=== PATIENT | male | born 1975 | race Caucasian/White ===

== ENCOUNTER 2019-07-31 07:04 | Day surgery (SDC) | payer OTHER ==
[2019-07-28 15:30] VITALS: BMI 31.6
[2019-07-31] MEDS ORDERED: LIDOCAINE HCL 1%, 10 MG/ML (20ML VIAL) ONE (09:45)
--- NOTE | 2019-07-31 09:47 | HP ---
Admitting History and Physical - Admission Chief Complaint: Right inguinal hernia History of Present Illness: Patient presents for right inguinal hernia repair. Patient states he noticed the hernia about 1 year ago and it has been getting progressively larger over time. He has been following with Dr Jaffe for this problem. History Source: Patient Limitations to Obtaining History: No Limitations - Past Medical History [employer] OVEN TENDER: No: Alzheimer's, CVA, Dementia, Migraine, Multiple Sclerosis, Peripheral Neuropathy, Parkinson's, Seizure, Syncope, TIA, Vertigo, Other Cardiovascular: No: AFIB, Aneurysm, Aortic Insufficiency, Aortic Stenosis, CAD, CHF, Deep Vein Thrombosis, HTN, Hyperlipdemia, VT, Mitral Insufficiency, Mitral Stenosis, Murmur, Pulmonary Hypertension, Other Pulmonary: No: Asthma, Bronchitis, Cancer, COPD, O2 Dependent, Pneumonia, Previously Intubated, Pulmonary Embolus, Pulmonary Fibrosis, Sleep Apnea, Other Gastrointestinal: No: Ascites, Cancer, Constipation, Crohn's Disease, Diverticulitis, Diverticulosis, Esophageal Varices, Gastritis, GERD, GI Bleed, Hemorrhoids, Hiatal Hernia, Inflamatory Bowel Disease, Irritable Bowel Disease, Pancreatitis, Peptic Ulcer Disease, Ulcerative Colitis, Other Hepatobiliary: No: Cirrhosis, Cholelithiasis, Cholecystitis, Choledocholithiasis , Hepatitis A, Hepatitis B, Hepatitis C, Other Renal/: No: Renal Failure, Renal Inusuff, BPH, Cancer, Hematuria, Hemodialysis , Neurogenic Bladder, Renal Calculi, UTI, Other Heme/Onc: No: Anemia, B12 Deficiency, Bleeding Disorder, Cancer, Current Chemotherapy, Current Radiation Therapy, Hemochromatosis, Hypercoaguable State, Myeloproliferative Synd, Sickle Cell Disease, Sickle Cell Trait, Thrombocytopenia, Other Infectious Disease: No: AIDS, C-Diff, Herpes Zoster, HIV, MRSA, STD's, Tuberculosis, VREF, Other Psych: No: Addictions, Anxiety, Bipolar, Depression, Panic, Psychosis, Schizophrenia, Other Musculoskeletal: No: Bursitis, Chronic low back pain, Hemiparesis, Hemiplegia, Osteoarthritis, Paraplegia, Other ENT: No: Allergic Rhinitis, Sinusitis, Other Endocrine: No: Crenshaw's Disease, [place]'s Disease, Diabetes Insipidus, Diabetes Mellitus, Hyperparathyroidism, Hyperthyroidism, Hypothyroidism, Osteopenia, SIADH, Other Dermatology: No: Basal Cell, Cellulitis, Eczema, Melanoma, Psoriasis, Squamous Cell, Other Additional Past Medical History: Right inguinal hernia as stated in HPI - Past Surgical History Past Surgical History: Yes: None - Smoking History Smoking history: Never smoked Have you smoked in the past 12 months: No - Alcohol/Substance Use Hx Alcohol Use: Yes (weekends,socially) - Social History ADL: Independent Home Medications - Allergies Allergies/Adverse Reactions: Allergies Allergy/AdvReac Type Severity Reaction Status Date / Time No Known Allergies Allergy Verified 07/28/19 15:26 - Home Medications Home Medications: Ambulatory Orders NK [No Known Home Medication] 07/28/19 Review of Systems - Review of Systems Constitutional: reports: No Symptoms Eyes: reports: No Symptoms HENT: reports: No Symptoms Neck: reports: No Symptoms Cardiovascular: reports: No Symptoms Respiratory: reports: No Symptoms Gastrointestinal: denies: No Symptoms, Abdominal Pain, Bloating, Constipation, Diarrhea, Dysphagia, Indigestion, Melena, Nausea, Rectal Bleeding, Vomiting, Vomiting Blood, Other Genitourinary: reports: Pain, Testicular Mass (hernia) Breasts: reports: No Symptoms Reported Musculoskeletal: reports: No Symptoms Integumentary: reports: No Symptoms Neurological: reports: No Symptoms Endocrine: reports: No Symptoms Hematology/Lymphatic: reports: No Symptoms Psychiatric: reports: No Symptoms Physical Examination Vital Signs: Vital Signs Temperature 97.8 F 07/31/19 07:24 Pulse Rate 80 07/31/19 07:24 Respiratory Rate 20 07/31/19 07:24 Blood Pressure 125/88 07/31/19 07:24 O2 Sat by Pulse Oximetry (%) 97 07/31/19 07:24 Constitutional: Yes: Well Nourished Eyes: Yes: Conjunctiva Clear, EOM Intact HENT: Yes: WNL, Atraumatic, Normocephalic Neck: Yes: Supple, Trachea Midline Cardiovascular: Yes: Regular Rate and Rhythm, S1, S2 Respiratory: Yes: Regular, CTA Bilaterally Gastrointestinal: Yes: Normal Bowel Sounds, Soft ...Rectal Exam: Yes: Deferred Breast(s): No: WNL, Left, Right, Breast Implants, Dimpling, Discharge from Nipple, Gynecomastia, Mass, Nipple Inversion, Skin Changes, Other Musculoskeletal: Yes: WNL Extremities: Yes: WNL Edema: No Peripheral Pulses WNL: Yes Peripheral Pulses: Left Radial: 2+, Right Radial: 2+, Left Doralis Pedis: 2+, Right Dorsalis Pedis: 2+ Integumentary: Yes: WNL Neurological: Yes: Alert Psychiatric: Yes: Alert, Oriented Labs: reviewed Problem List - Problems (1) Right inguinal hernia Assessment/Plan: Patient presents for elective repair of right inguinal hernia. Denies any new symptoms since last visit with Dr Jaffe -[facility] for surgery -Consent to be obtained by Dr Ld dupree to d/c home after surgery Code(s): K40.90 - UNIL INGUINAL HERNIA, W/O OBST OR GANGR, NOT SPCF RECUR Visit type - Emergency Visit Emergency Visit: No - New Patient This patient is new to me today: Yes Date on this admission: 07/31/19 - Critical Care Critical Care patient: No
[2019-07-31] MEDS ORDERED: MIDAZOLAM HCL 2 MG/2 ML SINGLE DOSE VIAL ONE (09:55)
[2019-07-31] MEDS ORDERED: PROPOFOL 20 ML ONE ×2 (09:55)
[2019-07-31] MEDS ORDERED: fentaNYL CITRATE 250 MCG/5 ML VIAL ONE (09:55)
[2019-07-31] MEDS ORDERED: ROCURONIUM BROMIDE 50 MG/5 ML SYRINGE ONE (09:55)
[2019-07-31] MEDS ORDERED: ceFAZolin SODIUM 1 GM VIAL IVPB ONE (10:33)
[2019-07-31] MEDS ORDERED: BUPIVACAINE HCL/PF 0.5% (5MG/ML) 10 ML VIAL NR ONE ×2 (10:48)
[2019-07-31] MEDS ORDERED: LIDOCAINE HCL 1%, 10 MG/ML (20ML VIAL) NR ONE ×2 (10:48)
--- NOTE | 2019-07-31 12:16 | OP ---
Operative Note - Note: Operative Date: 07/31/19 Pre-Operative Diagnosis: Right Inguinal hernia Operation: Right inguinal hernia repair with mesh Post-Operative Diagnosis: Same as Pre-op Surgeon: Jacky Jaffe Blending Kettle Tender: Sandee Damon Anesthesiologist/POWERHOUSE MECHANIC: Denys Reardon Anesthesia: General, Local Estimated Blood Loss (mls): 10 Fluid Volume Replaced (mls): 1,000 Operative Report Dictated: Yes
--- NOTE | 2019-07-31 12:17 | SURG ---
Surgery Roofing Layer Note Roofing Layer: Sandee Damon PA-C Date of Service: 07/31/19 Diagnosis: Right Inguinal hernia Procedure: Right inguinal hernia repair with mesh I was present for the entirety of the operative procedure. For further detail, please refer to operative report. Visit type - Case Type Case Type: Scheduled - Emergency Emergency Visit: No - New patient This patient is new to me today: Yes Date on this admission: 07/31/19
[2019-07-31] MEDS ORDERED: oxyCODONE HCL 5 MG TABLET PO PRN ×2 (12:52)
[2019-07-31] MEDS ORDERED: ONDANSETRON 4 MG/2 ML VIAL IVPUSH PRN (12:52)
[2019-07-31] MEDS ORDERED: LACTATED RINGERS SOLUTION 1,000 ML IV SCH (13:00)
[2019-07-31 14:16] VITALS: TEMP 98.3
[2019-07-31] MEDS ORDERED: oxyCODONE HCL 5 MG TABLET ONE (16:59)
[2019-07-31] MEDS ORDERED: oxyCODONE HCL 5 MG TABLET PO ONE (17:00)
[2019-07-31 17:54] VITALS: BP 117/71; PULSE 70
--- NOTE | 2019-08-03 10:11 | OP ---
DATE OF OPERATION: 07/31/2019 PREOPERATIVE DIAGNOSIS: Right inguinal hernia. POSTOPERATIVE DIAGNOSIS: Right inguinal hernia. PROCEDURE PERFORMED: Repair of right inguinal hernia with ProGrip mesh. SURGEON: Jacky Jaffe MD TRIAGE TECHNICIAN: Sandee Damon PA-C ANESTHESIA: General. OPERATIVE FINDINGS: There was a direct inguinal hernia. The rest of the findings were unremarkable. DESCRIPTION OF PROCEDURE: The patient was placed on the operating table in the supine position. After the induction of general anesthesia, the patient's right groin was prepped with ChloraPrep and draped in sterile fashion. A time-out was taken. A transverse groin crease incision was made with a scalpel and taken down through skin, subcutaneous tissue and [place] fascia to the external oblique fascia. The external oblique fascia was divided proximally and distally through the external ring in the direction of its fibers, and the cord structures and nerve were elevated at the level of the pubic tubercle, and a [place] drain placed around them for traction and identification purposes. The previously noted findings were observed. The hernia was reduced into the direct space, and there was no evidence of an indirect hernia. Next, a piece of ProGrip mesh was fashioned into the floor of the inguinal canal, anchoring it at the pubic tubercle, shelving edge and conjoint tendon, respectively, with interrupted 2-0 Prolene. A keyhole was created for the cord structures and the tails of the mesh brought above the level of the internal ring and crossed and anchored there with interrupted 2-0 Prolene. Hemostasis was checked for and noted to be good. Then the wound was copiously irrigated with sterile saline. The cord structures and nerve were returned to their normal anatomic position, and the external oblique fascia closed over then with continuous 2-0 Vicryl, recreating the external ring. Again, hemostasis was checked for and noted to be good. Then [place] fascia was reapproximated with interrupted 2-0 Vicryl, the deep dermis with interrupted 3-0 Vicryl and the skin edges with 4-0 Monocryl in a subcuticular continuous fashion. Steri-Strips and dry sterile dressings were placed, and the procedure terminated at this point. The patient was aroused from general anesthesia and transferred to the postanesthesia care unit in stable condition, awake and alert. ESTIMATED BLOOD LOSS: 10 mL. REPLACEMENT: Crystalloid. DRAINS: None. SPECIMEN: None. I, Jacky N. Jaffe, was physically present in the operating room from the time the patient was placed on the operating room table until he was transferred to the postanesthesia care unit in my accompaniment. MD YEE Haskins/[id number] MTDD
== END 2019-07-31 17:45 | disposition home or self-care (01) ==
LOC: JASU-SURG 07:04
PROVIDERS: ATTEND Surgery
PROC: 0YU50JZ Supplement Right Inguinal Region with Synthetic Substitute, Open Approach (ICD-10-PCS; principal; 2019-07-31 09:30)
DX: K40.90 Unilateral inguinal hernia, without obstruction or gangrene, not specified as recurrent (principal)
CPT/HCPCS: 94760

== ENCOUNTER 2022-05-26 04:41 | Day surgery (SDC) | payer OTHER ==
[2022-05-22 14:26] VITALS: BMI 32.5
[2022-05-26 10:31] VITALS: TEMP 97.8
[2022-05-26 10:57] VITALS: PULSE 69
[2022-05-26 10:58] VITALS: BP 102/74; RESP 17
== END 2022-05-26 11:00 | disposition home or self-care (01) ==
LOC: JASU-ENDO 04:41
PROVIDERS: ATTEND Internal Medicine Gastroenterology
PROC: 0DBN8ZX Excision of Sigmoid Colon, Via Natural or Artificial Opening Endoscopic, Diagnostic (ICD-10-PCS; principal; 2022-05-26 10:00)
DX: Z12.11 Encounter for screening for malignant neoplasm of colon (principal); D12.7 Benign neoplasm of rectosigmoid junction; K64.8 Other hemorrhoids
CPT/HCPCS: 88305-TC